=== PATIENT | female | born 1955 | race Caucasian/White ===

== ENCOUNTER 2017-02-06 17:55 | Emergency (ER) | payer BC ==
[2017-02-06 18:00] VITALS: TEMP 98.3; BMI 21.7
--- NOTE | 2017-02-06 19:25 | PDOC ---
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 She qualifies the pain as pressure-like, stating that there are bricks on her chest. She denies any alleviating or exacerbating factors and states that she takes aspirin daily. The patient reports not recently taking her cholesterol medications. She also reports that she is recently getting over a cold in which she was taking antibiotics for. The patient denies any fever, chills, nausea, vomiting, diarrhea, cough, shortness of breath, or urinary symptoms. Social Hx: The patient denies any drug, tobacco, or alcohol use. Family Hx: The patient reports a family history of heart disease. PCP: Dr. Pisano <Krystyna Tang - Last Filed: 02/06/17 22:31> <Florina Gallardo - Last Filed: 02/06/17 23:05> - General Chief Complaint: Shortness of Breath Stated Complaint: SHORTNESS OF BREATH Time Seen by Provider: 02/06/17 19:11 Past History <Krystyna Tang - Last Filed: 02/06/17 22:31> - Past Medical History Anemia: No Asthma: No Cancer: Yes (lung cancer) Cardiac Disorders: Yes (UT) CVA: No COPD: No CHF: No Dementia: No Diabetes: No GI Disorders: No Disorders: No HTN: Yes Hypercholesterolemia: Yes Liver Disease: No Seizures: No Thyroid Disease: No - Surgical History Abdominal Surgery: Yes Appendectomy: Yes Cardiac Surgery: No Cholecystectomy: No Lung Surgery: Yes (RIGHT UPPER LOBECTOMY, bx,thoracotomy) Neurologic Surgery: No Orthopedic Surgery: No - Immunization History Immunization Up to Date: Yes - Psycho/Social/Smoking Cessation Hx Anxiety: Yes Suicidal Ideation: No Smoking Status: Yes Smoking History: Former smoker Have you smoked in the past 12 months: No Number of Cigarettes Smoked Daily: 0 If you are a former smoker, when did you quit?: 2010 Information on smoking cessation initiated: No Hx Alcohol Use: No Drug/Substance Use Hx: No Substance Use Type: None Hx Substance Use Treatment: No <Florina Gallardo - Last Filed: 02/06/17 23:05> - Past Medical History Allergies/Adverse Reactions: Allergies Allergy/AdvReac Type Severity Reaction Status Date / Time No Known Allergies Allergy Verified 02/06/17 18:00 Home Medications: Ambulatory Orders Alprazolam 0.5 mg PO TID 02/06/17 Hydrocodone/Acetaminophen [[place] 5-325 Tablet] 1 each PO TID 02/06/17 Methimazole 5 mg PO DAILY 02/06/17 Propranolol HCl 20 mg PO DAILY 02/06/17 Zolpidem Tartrate 10 mg PO DAILY 02/06/17 Review of Systems - Review of Systems Able to Perform ROS?: Yes Comments:: 02/06/17 20:04 GENERAL/CONSTITUTIONAL: No fever or chills. No weakness. HEAD, EYES, EARS, NOSE AND THROAT: No change in vision. No ear pain or discharge. No sore throat. CARDIOVASCULAR: Present: chest pain No shortness of breath. RESPIRATORY: No cough, wheezing, or hemoptysis. GASTROINTESTINAL: No nausea, vomiting, diarrhea or constipation. GENITOURINARY: No dysuria, frequency, or change in urination. MUSCULOSKELETAL: No joint or muscle swelling or pain. No neck or back pain. SKIN: No rash NEUROLOGIC: No headache, vertigo, loss of consciousness, or change in strength/ sensation. ENDOCRINE: No increased thirst. No abnormal weight change. HEMATOLOGIC/LYMPHATIC: No anemia, easy bleeding, or history of blood clots. ALLERGIC/IMMUNOLOGIC: No hives or skin allergy. All Other Systems: Reviewed and Negative <Krystyna Tang - Last Filed: 02/06/17 22:31> *Physical Exam - Vital Signs Last Vital Signs Temp Pulse Resp BP Pulse Ox 98.3 F 92 H 18 107/65 98 02/06/17 17:57 02/06/17 17:57 02/06/17 17:57 02/06/17 17:57 02/06/17 17:57 - Physical Exam Comments: 02/06/17 20:05 GENERAL: Awake, alert, and fully oriented, in no acute distress HEAD: No signs of trauma EYES: PERRLA, EOMI, sclera anicteric, conjunctiva clear ENT: Auricles normal inspection, hearing grossly normal, nares patent, oropharynx clear without exudates. Moist mucosa NECK: Normal ROM, supple, no lymphadenopathy, JVD, or masses LUNGS: Breath sounds equal, clear to auscultation bilaterally. No wheezes, and no crackles HEART: Regular rate and rhythm, normal S1 and S2, no murmurs, rubs or gallops ABDOMEN: Soft, nontender, normoactive bowel sounds. No guarding, no rebound. No masses EXTREMITIES: Normal range of motion, no edema. No clubbing or cyanosis. No cords, erythema, or tenderness NEUROLOGICAL: Cranial nerves II through XII grossly intact. Normal speech, normal gait SKIN: Warm, Dry, normal turgor, no rashes or lesions noted. <Krystyna Tang - Last Filed: 02/06/17 22:31> - Vital Signs Last Vital Signs Temp Pulse Resp BP Pulse Ox 98.3 F 92 H 18 107/65 98 02/06/17 17:57 02/06/17 17:57 02/06/17 17:57 02/06/17 17:57 02/06/17 17:57 <Florina Gallardo - Last Filed: 02/06/17 23:05> Heart Score/ECG Review - ECG Intrepretation Comment:: 02/06/17 20:05 ECG obtained at 19:58 Normal sinus at 81 bpm. Left atrial enlargement that is the same pattern as old ECG on 10/06/16 <Krystyna Tang - Last Filed: 02/06/17 22:31> ED Treatment Course - LABORATORY CBC & Chemistry Diagram: 02/06/17 20:00 02/06/17 21:03 <KittyKrystyna - Last Filed: 02/06/17 22:31> - LABORATORY CBC & Chemistry Diagram: 02/06/17 20:00 02/06/17 21:03 <Florina Gallardo - Last Filed: 02/06/17 23:05> Medical Decision Making - Medical Decision Making 02/06/17 22:03 Phone call placed to patient's PCP, Dr. Pisano. Awaiting call back 02/06/17 22:31 Phone call returned by Dr. Turpin, covering for Dr. Pisano. Case was discussed. <Krystyna Tang - Last Filed: 02/06/17 22:31> - Medical Decision Making 02/06/17 21:59 Pt comes with feeling of tightness or weight on her chest. Not worse with exertion. Her EKG is the same pattern as old. Her vitals are normal. CBC normal. Chem and cardiac enzymes hemolyzed; 3 tubes resent; cardiac enzymes and lipase cancelled. 4 hrs later I am requesting another cardiac enzyme and lipase add on. 4 hrs later I am still awaiting a CXR. I will call Dr. Bustillo to see if he wants to admit the patient. Pt was teated with asa only. She is feeling okay at this time. She has no complaints. She states that she is always SOB after her lung lobectomies due to her history of lung cancer. TSH also pending. 02/06/17 23:[address] Greco, who is covering for Tristian; he agrees that pt can remain in the hospital for observation under hospitalist. Pt doesnt want to stay. She wants to go home, as she states that her pain began yesterday AM. SHe wants to follow with her PMD as an outpatient. <Florina Gallardo - Last Filed: 02/06/17 23:05> *DC/Admit/Observation/Transfer - Attestations Scribe Attestion: 02/06/17 20:07 Documentation prepared by Kyrstyna Tang, acting as medical practice assistant for Florina Gallardo MD. <Krystyna Tang - Last Filed: 02/06/17 22:31> - Discharge Dispostion Admit: No <Florina Gallardo - Last Filed: 02/06/17 23:05> Diagnosis at time of Disposition: GERD (gastroesophageal reflux disease), Atypical chest pain - Discharge Dispostion Disposition: HOME Condition at time of disposition: Stable - Referrals Referrals: Garfield Pisano MD [Primary Care Provider] - - Patient Instructions Printed Discharge Instructions: DI for Atypical Chest Pain, Gastroesophageal Reflux Disease (Alternative Therapy)
[2017-02-06] MEDS ORDERED: ASPIRIN 81 MG CHEWABLE TABLETS PO ONE (19:43)
[2017-02-06] MEDS ORDERED: ASPIRIN 81 MG CHEWABLE TABLETS ONE (19:54)
[2017-02-06 20:27] LABS: BASOPHIL 1.4 % (0-2.0); EOSINOPHIL 2.6 % (0-4.5); MEAN CELL VOLUME 94.2 fl (80-96); MEAN PLT VOLUME 9.1 fl (7.5-11.1); NEUTROPHILS 39.6 % (42.8-82.8); PLATELET COUNT 143 K/MM3 (134-434); RDW 14.1 % (11.6-15.6); WHITE BLOOD COUNT 5.8 K/mm3 (4.0-10.0)
[2017-02-06 21:50] LABS: ALBUMIN 3.7 g/dl (3.4-5.0); ALK PHOS 80 U/L (45-117); ANION GAP 10 (8-16); BILIRUBIN,TOTAL 0.3 mg/dL (0.2-1.0); CALCIUM 9.1 mg/dL (8.5-10.1); CO2 27 mmol/L (21-32); CREATININE 0.7 mg/dL (0.55-1.02); GLUCOSE,RANDOM 88 mg/dL (74-106); SGOT/AST 12 U/L (15-37); SGPT/ALT 16 U/L (12-78); TOT PROT 7.2 g/dl (6.4-8.2)
[2017-02-06 22:24] LABS: TROPONIN I < 0.02 ng/ml (0.00-0.05)
[2017-02-06] MEDS ORDERED: FAMOTIDINE 20 MG/50 ML IVPB 50 ML IVPB ONE (22:26)
[2017-02-06] MEDS ORDERED: MAG HYDROX/AL HYDROX/SIMETH 30 ML UNIT-DOSE CUP PO ONE (22:26)
[2017-02-06 23:18] VITALS: BP 110/69; PULSE 59
--- NOTE | 2017-02-07 14:18 | EKG ---
Test Reason : Blood Pressure : / mmHG Vent. Rate : 081 BPM Atrial Rate : 081 BPM P-R Int : 198 ms QRS Dur : 078 ms QT Int : 386 ms P-R-T Axes : 089 049 079 degrees QTc Int : 448 ms NORMAL SINUS RHYTHM POSSIBLE LEFT ATRIAL ENLARGEMENT LOW VOLTAGE QRS CANNOT RULE OUT ANTEROSEPTAL INFARCT (CITED ON OR BEFORE 16-MAR-2008) ABNORMAL ECG WHEN COMPARED WITH ECG OF 06-OCT-2016 05:53, NO SIGNIFICANT CHANGE WAS FOUND Confirmed by ASIA GO, AME ([id number]) on 02/07/2017 2:17:50 PM Referred By: Confirmed By:AME BETANCOURT MD
== END 2017-02-06 23:19 | disposition home or self-care (01) ==
LOC: JER 17:55
DX: R07.89 Other chest pain (principal); K21.9 Gastro-esophageal reflux disease without esophagitis; Z79.82 Long term (current) use of aspirin; I10 Essential (primary) hypertension; E78.5 Hyperlipidemia, unspecified; I25.10 Atherosclerotic heart disease of native coronary artery without angina pectoris; Z85.118 Personal history of other malignant neoplasm of bronchus and lung; E07.9 Disorder of thyroid, unspecified; I25.2 Old myocardial infarction; Z87.891 Personal history of nicotine dependence
CPT/HCPCS: 36415; 71020-TC; 80053; 82550; 83690; 84443; 84484; 85025; 93005; 93010; 99284-25

== ENCOUNTER 2017-03-11 12:13 | Emergency (ER) | payer BC ==
[2017-03-11 12:20] VITALS: TEMP 98.7; BMI 20.7
[2017-03-11] MEDS ORDERED: morphine CARPU-JECT 4 MG/1 ML DISP.SYRIN IVPUSH ONE (13:32)
[2017-03-11] MEDS ORDERED: morphine CARPU-JECT 4 MG/1 ML DISP.SYRIN ONE (13:45)
--- NOTE | 2017-03-11 13:48 | PDOC ---
History of Present Illness <Seema Freitas - Last Filed: 03/11/17 18:43> - General History Source: Patient Exam Limitations: No Limitations - History of Present Illness Initial Comments: 03/11/17 13:43 61y F hx of lung ca (s/p lobectomy on L and R, sp immunotherpay with complications), htn,hl, cad s/p mi, hypothyroidism presents with L rib pain. Pt states she has been having pain in that region for eight months, and is on oral meds and pain patch but has not beenhelpint. pt denies any cp, sob, fever/chills , diarrhea, dysuria, hematuria, consipation, headache, dizziness, vision changes. pt states when you push on a particualr location on the left flank the pain radiates to the L groin. PSH: appendectomy, thoracotomy, lobectomy SH: Former smoker PCP: Dr. Garfield Pisano Oncologist: Dr. Singh Key <Bebeto Mariano - Last Filed: 03/11/17 20:14> - General Chief Complaint: Pain Stated Complaint: PAIN Time Seen by Provider: 03/11/17 13:02 Past History <Seema Freitas - Last Filed: 03/11/17 18:43> - Past Medical History Anemia: No Asthma: No Cancer: Yes (lung cancer) Cardiac Disorders: Yes ([place]) CVA: No COPD: No CHF: No Dementia: No Diabetes: No GI Disorders: No Disorders: No HTN: Yes Hypercholesterolemia: Yes Liver Disease: No Seizures: No Thyroid Disease: No - Surgical History Abdominal Surgery: Yes Appendectomy: Yes Cardiac Surgery: No Cholecystectomy: No Lung Surgery: Yes (RIGHT UPPER LOBECTOMY, bx,thoracotomy) Neurologic Surgery: No Orthopedic Surgery: No - Immunization History Immunization Up to Date: Yes - Psycho/Social/Smoking Cessation Hx Anxiety: Yes Suicidal Ideation: No Smoking Status: Yes Smoking History: Former smoker Have you smoked in the past 12 months: No Number of Cigarettes Smoked Daily: 0 If you are a former smoker, when did you quit?: 2010 Information on smoking cessation initiated: No Hx Alcohol Use: No Drug/Substance Use Hx: No Substance Use Type: None Hx Substance Use Treatment: No <Bebeto Mariano - Last Filed: 05/18/17 20:14> - Past Medical History Allergies/Adverse Reactions: Allergies Allergy/AdvReac Type Severity Reaction Status Date / Time No Known Allergies Allergy Verified 03/11/17 12:17 Home Medications: Ambulatory Orders Alprazolam 0.5 mg PO TID 02/06/17 Hydrocodone/Acetaminophen [[place] 5-325 Tablet] 1 each PO BID 02/06/17 Methimazole 5 mg PO DAILY 02/06/17 Propranolol HCl 20 mg PO TID 02/06/17 Zolpidem Tartrate 10 mg PO DAILY 02/06/17 Oxycodone HCl/Acetaminophen [Perc[place]et 5-325 mg Tablet -] 1 combo PO Q6H PRN #14 tablet MDD 4 03/11/17 Review of Systems - Review of Systems Able to Perform ROS?: Yes Comments:: 03/11/17 13:47 Constitutional - no reported Fever, Chills, HEENT: no reported vision changes, sore throat Respiratory: no reported cough, sob, hemoptysis Cardiac: no reported chest pain, palpitations, light headedness, leg swelling Abd/GI: + abd pain, flank pain no reported nausea, vomiting, blood per rectum, melena, diarrhea : no reported dysuria, frequency, discharge Musculskelatal - no reported back pain, joint swelling skin - no reported bruising, erythema, rash neurological: no reported headache, numbness, focal weakness, tingling, ataxia, hematologic: no reported anemia, easy bruising, easy bleeding <Beebto Mariano - Last Filed: 03/11/17 20:14> *Physical Exam - Vital Signs Last Vital Signs Temp Pulse Resp BP Pulse Ox 98.7 F 111 H 24 134/82 99 03/11/17 12:17 03/11/17 12:17 03/11/17 12:17 03/11/17 12:17 03/11/17 12:17 <Seema Freitas - Last Filed: 03/11/17 18:43> - Vital Signs Last Vital Signs Temp Pulse Resp BP Pulse Ox 98.7 F 111 H 24 134/82 99 03/11/17 12:17 03/11/17 12:17 03/11/17 12:17 03/11/17 12:17 03/11/17 12:17 - Physical Exam Comments: 03/11/17 13:48 GENERAL: The patient is awake, alert, and fully oriented, Nontoxic - in no acute distress. Cachectic HEAD: Normocephalic, atraumatic. EYES: extraocular movements intact, sclera anicteric, conjunctiva clear. ENT: Normal voice, Moist mucous membranes. NECK: Normal range of motion, supple LUNGS: Breath sounds equal, clear to auscultation bilaterally. No wheezes, no rhonchi, no rales. HEART: port in R chest that is c/d/i Regular rate and rhythm, normal S1 and S2 without murmur, rub or gallop. ABDOMEN: Soft, nontender, normoactive bowel sounds. No guarding, no rebound. . No CVA tenderness EXTREMITIES: Normal range of motion, no edema. No clubbing or cyanosis. No cords, erythema, or tenderness. NEUROLOGICAL: No facial assymetry, Normal speech, PSYCH: Normal mood, normal affect. SKIN: Warm, Dry, normal turgor, BACK: s/p thoracotomy scars in back b/l, no midline focal tenderness, mild tendernes sin the L flank, no rashes or lesions <García,Bebeto - Last Filed: 03/11/17 20:14> ED Treatment Course - LABORATORY CBC & Chemistry Diagram: 03/11/17 13:32 03/11/17 13:32 - ADDITIONAL ORDERS Additional order review: Laboratory Results 03/11/17 03/11/17 14:45 13:32 Sodium 143 Potassium 3.8 Chloride 104 Carbon Dioxide 26 Anion Gap 13 BUN 7 D Creatinine 0.7 Creat Clearance w eGFR > 60 Random Glucose 87 Calcium 9.3 Total Bilirubin 0.4 D AST 12 L ALT 16 Alkaline Phosphatase 72 Total Protein 7.3 Albumin 4.1 Urine Color Straw Urine Appearance Clear Urine pH 5.0 Urine Protein Negative Urine Glucose (UA) Negative Urine Ketones Negative Urine Blood 2+ H Urine Nitrite Negative Urine Bilirubin Negative Urine Urobilinogen Negative Ur Leukocyte Esterase Negative 03/11/17 13:32 RBC 4.07 MCV 92.3 MCHC 34.5 RDW 13.6 MPV 7.1 L D Neutrophils % 53.6 D Lymphocytes % 36.1 D Monocytes % 7.5 Eosinophils % 1.5 Basophils % 1.3 - Medications Given in the ED: ED Medications Discontinued Medications Generic Name Dose Route Start Last Admin Trade Name Freq PRN Reason Stop Dose Admin Sodium Chloride 500 mls @ 500 mls/hr 03/11/17 13:49 03/11/17 14:15 Normal Saline - IV 03/11/17 14:48 500 mls/hr ASDIR STA Administration Ketorolac Tromethamine 30 mg 03/11/17 17:14 03/11/17 17:30 Toradol Injection - IVPUSH 03/11/17 17:15 30 mg ONCE ONE Administration Morphine Sulfate 4 mg 03/11/17 13:32 03/11/17 13:48 Morphine Injection - IVPUSH 03/11/17 13:33 4 mg ONCE ONE Administration <Seema Freitas - Last Filed: 03/11/17 18:43> - LABORATORY CBC & Chemistry Diagram: 03/11/17 13:32 03/11/17 13:32 <Bebeto Mariano - Last Filed: 03/11/17 20:14> Medical Decision Making - Medical Decision Making 03/11/17 18:42 First call placed to Dr. Pisano at 18:42. Awaiting call back from Dr. Christianson. <Seema Freitas - Last Filed: 03/11/17 18:43> - Medical Decision Making 03/11/17 13:49 03/11/17 17:14 labs w/ 2+ hematuria ?kidney stone will await CT abdomen/pelvis 03/11/17 18:32 ct + nephrolithiasis w/o signs of hydronephrosis do not think the stone is likely the cause of her pain ?post op pain vs msk will discuss with pam 03/11/17 19:53 03/11/17 20:[address] christianson agree with management, pt has chronic pain, unclear cause, was hospitalized for same in the past if pain controlled, can d/c with pmd fu will also have pt fu with urology for kidney stone return precautiosn were discussed I discussed the physical exam findings, ancillary test results and final diagnoses with the patient. I answered all of the patient's questions. The patient was satisfied with the care received and felt comfortable with the discharge plan and treatment plan. The patient will call their primary care physician within 24 hours to arrange follow-up and will return to the Emergency Department with any new, persistent or worsening symptoms. <García,Bebeto - Last Filed: 03/11/17 20:14> *DC/Admit/Observation/Transfer - Attestations Scribe Attestion: 03/11/17 18:43 Documentation prepared by Seema Freitas, acting as medical billing coder for Bebeto Mariano MD. <Seema Freitas - Last Filed: 03/11/17 18:43> - Discharge Dispostion Admit: No <Bebeto Mariano - Last Filed: 03/11/17 20:14> Diagnosis at time of Disposition: Flank pain, Kidney stone on left side Chronic pain Qualifiers: Chronic pain type: other chronic pain Qualified Code(s): G89.29 - Other chronic pain - Discharge Dispostion Disposition: HOME Condition at time of disposition: Improved - Referrals Referrals: Garfield Pisano MD [Primary Care Provider] - Slick Moralez MD [Staff Physician] - - Patient Instructions Printed Discharge Instructions: DI for Kidney Stones Additional Instructions: Return to the emergency department immediately with ANY new, persistent or worsening symptoms including any fevers, chills, worsening pain, nausea, vomiting, severe back pain or any other concerns. You MUST call and follow up with your doctor and urologist within 3-4 days for further evaluation of your symptoms. Results were discussed with you. Please make sure your doctor reviews the results of your emergency evaluation. Print Language: INDIAN
[2017-03-11] MEDS ORDERED: SODIUM CHLORIDE 500 ML IV STA (13:49)
[2017-03-11 14:10] LABS: MCH 31.9 pg (25.7-33.7); MCHC 34.5 g/dl (32.0-36.0); MEAN CELL VOLUME 92.3 fl (80-96); PLATELET COUNT 204 K/MM3 (134-434); RDW 13.6 % (11.6-15.6); WHITE BLOOD COUNT 5.3 K/mm3 (4.0-10.0)
[2017-03-11 14:11] LABS: BASOPHIL 1.3 % (0-2.0); EOSINOPHIL 1.5 % (0-4.5); MEAN PLT VOLUME 7.1 fl (7.5-11.1); NEUTROPHILS 53.6 % (42.8-82.8)
[2017-03-11 14:20] LABS: ALBUMIN 4.1 g/dl (3.4-5.0); ALK PHOS 72 U/L (45-117); ANION GAP 13 (8-16); BILIRUBIN,TOTAL 0.4 mg/dL (0.2-1.0); CALCIUM 9.3 mg/dL (8.5-10.1); CO2 26 mmol/L (21-32); CREATININE 0.7 mg/dL (0.55-1.02); GLUCOSE,RANDOM 87 mg/dL (74-106); SGOT/AST 12 U/L (15-37); SGPT/ALT 16 U/L (12-78); TOT PROT 7.3 g/dl (6.4-8.2)
[2017-03-11 15:17] LABS: URINE APPEARANCE CLEAR; URINE BILIRUBIN NEGATIVE (NEGATIVE); URINE COLOR STRAW; URINE GLUCOSE (UA) NEGATIVE (NEGATIVE); URINE KETONE NEGATIVE (NEGATIVE); URINE LEUK ESTERASE NEGATIVE (NEGATIVE); URINE NITRITE NEGATIVE (NEGATIVE); URINE PROTEIN NEGATIVE (NEGATIVE); URINE UROBILINOGEN NEGATIVE E.U./dl (0.2-1.0)
[2017-03-11 15:53] LABS: URINE BLOOD 2+ (NEGATIVE)
[2017-03-11 16:07] LABS: URINE BACTERIA RARE /hpf (NONE SEEN); URINE MUCUS RARE; URINE RBC 1 /hpf (0-3)
[2017-03-11] MEDS ORDERED: KETOROLAC TROMETHAMINE 30 MG/1 ML VIAL IVPUSH ONE (17:14)
[2017-03-11] MEDS ORDERED: KETOROLAC TROMETHAMINE 30 MG/1 ML VIAL ONE (17:26)
[2017-03-11] MEDS ORDERED: morphine CARPU-JECT 2 MG/1 ML DISP.SYRIN IVPUSH ONE (18:33)
[2017-03-11] MEDS ORDERED: morphine CARPU-JECT 2 MG/1 ML DISP.SYRIN ONE (18:40)
[2017-03-11 20:00] VITALS: BP 115/74; PULSE 75
== END 2017-03-11 20:18 | disposition home or self-care (01) ==
LOC: JER 12:13
PROC: 3E0333Z Introduction of Anti-inflammatory into Peripheral Vein, Percutaneous Approach (ICD-10-PCS; principal; 2017-03-11)
PROC: 3E033NZ Introduction of Analgesics, Hypnotics, Sedatives into Peripheral Vein, Percutaneous Approach (ICD-10-PCS; 2017-03-11)
PROC: 3E0337Z Introduction of Electrolytic and Water Balance Substance into Peripheral Vein, Percutaneous Approach (ICD-10-PCS; 2017-03-11)
DX: N23 Unspecified renal colic (principal); R10.32 Left lower quadrant pain; G89.29 Other chronic pain; Z85.118 Personal history of other malignant neoplasm of bronchus and lung; Z85.3 Personal history of malignant neoplasm of breast
CPT/HCPCS: 36415; 74176; 80053; 81003; 81015; 85025; 99284-25

== ENCOUNTER 2017-03-15 12:08 | Emergency (ER) | payer BC ==
[2017-03-15 12:30] VITALS: BMI 21.7
[2017-03-15] MEDS ORDERED: HYDROmorphone HCL CARPU-JECT 1 MG/1 ML DISP.SYRIN IVPB ONE (12:47)
[2017-03-15] MEDS ORDERED: HYDROmorphone HCL CARPU-JECT 1 MG/1 ML DISP.SYRIN ONE (12:58)
--- NOTE | 2017-03-15 13:12 | PDOC ---
"History of Present Illness - General History Source: Patient, Old Records Exam Limitations: No Limitations - History of Present Illness Initial Comments: 03/15/17 13:18 The patient is a 61 year old female, with a significant past medical history of lung ca (s/p lobectomy on L and R, sp immunotherpay with complications), HTN, HLD, CAD s/p AR, and hypothyroidism, who presents to the emergency department with abdominal pain, nausea and constipation. She describes her abdominal pain as localized on the left lower quadrant, moderate in severity, with radiation to the left flank. She notes that certain movements exacerbates her pain. The patient was in the ED on 03/11/2017 for the same symptoms, diagnosed wih kidney stones and discharged after improvements of symptoms. She was referred to follow up with her PMD and urologist in 3-4 days. The patient denies chest pain, shortness of breath, headache and dizziness. Denies fever, chills, vomit, and diarrhea. Denies dysuria, frequency, urgency and hematuria. Allergies: None Past surgical history: lobectomy, appendectomy, thoracotomy Social history: No alcohol, tobacco or drug use reported PMD - Dr. Pisano Oncologist: Dr. Singh Key <Dejon Agrawal - Last Filed: 03/15/17 14:33> - General History Source: Patient, Old Records Exam Limitations: No Limitations <Julius Sutton - Last Filed: 04/02/17 08:08> - General Chief Complaint: Pain Stated Complaint: ABD PAIN Time Seen by Provider: 03/15/17 12:43 Past History <Dejon Agrawal - Last Filed: 03/15/17 14:33> - Past Medical History Anemia: No Asthma: No Cancer: Yes (lung cancer) Cardiac Disorders: Yes ([place]) CVA: No COPD: No CHF: No Dementia: No Diabetes: No GI Disorders: No Disorders: No HTN: Yes Hypercholesterolemia: Yes Liver Disease: No Seizures: No Thyroid Disease: No - Surgical History Abdominal Surgery: Yes Appendectomy: Yes Cardiac Surgery: No Cholecystectomy: No Lung Surgery: Yes (RIGHT UPPER LOBECTOMY, bx,thoracotomy) Neurologic Surgery: No Orthopedic Surgery: No - Immunization History Immunization Up to Date: Yes - Psycho/Social/Smoking Cessation Hx Anxiety: Yes Suicidal Ideation: No Smoking Status: Yes Smoking History: Former smoker Have you smoked in the past 12 months: No Number of Cigarettes Smoked Daily: 0 If you are a former smoker, when did you quit?: 2010 Information on smoking cessation initiated: No Hx Alcohol Use: No Drug/Substance Use Hx: No Substance Use Type: None Hx Substance Use Treatment: No <LesleyJulius - Last Filed: 04/02/17 08:08> - Past Medical History Allergies/Adverse Reactions: Allergies Allergy/AdvReac Type Severity Reaction Status Date / Time No Known Allergies Allergy Verified 03/15/17 12:27 Home Medications: Ambulatory Orders Alprazolam 0.5 mg PO TID 02/06/17 Hydrocodone/Acetaminophen [[place] 5-325 Tablet] 1 each PO BID 02/06/17 Methimazole 5 mg PO DAILY 02/06/17 Propranolol HCl 20 mg PO TID 02/06/17 Zolpidem Tartrate 10 mg PO DAILY 02/06/17 Oxycodone HCl/Acetaminophen [Percocet 5-325 mg Tablet -] 1 combo PO Q6H PRN #14 tablet MDD 4 03/11/17 Aspirin [Children's Aspirin] 81 mg PO DAILY 03/15/17 Ondansetron [Zofran -] 4 mg PO TID PRN #20 tablet 03/15/17 Oxycodone HCl/Acetaminophen [Percocet 5-325 mg Tablet] 1 tab PO Q6H PRN #10 tablet MDD 4 03/15/17 Review of Systems - Review of Systems Able to Perform ROS?: Yes Comments:: 03/15/17 13:18 GENERAL/CONSTITUTIONAL: No fever or chills. No weakness. HEAD, EYES, EARS, NOSE AND THROAT: No change in vision. No ear pain or discharge. No sore throat. CARDIOVASCULAR: No chest pain or shortness of breath RESPIRATORY: No cough, wheezing, or hemoptysis. GASTROINTESTINAL: (+) Abdominal pain, nausea and constipation. No vomiting, diarrhea. GENITOURINARY: No dysuria, frequency, or change in urination. MUSCULOSKELETAL: No joint or muscle swelling or pain. No neck or back pain. SKIN: No rash NEUROLOGIC: No headache, vertigo, loss of consciousness, or change in strength/ sensation. ENDOCRINE: No increased thirst. No abnormal weight change HEMATOLOGIC/LYMPHATIC: No anemia, easy bleeding, or history of blood clots. ALLERGIC/IMMUNOLOGIC: No hives or skin allergy. <Dejon Agrawal - Last Filed: 03/15/17 14:33> *Physical Exam - Vital Signs Last Vital Signs Temp Pulse Resp BP Pulse Ox 98 F 65 20 125/80 100 03/15/17 12:27 03/15/17 12:27 03/15/17 12:27 03/15/17 12:27 03/15/17 12:27 - Physical Exam Comments: 03/15/17 13:20 GENERAL: (+) Uncomfortable appearingAwake, alert, and fully oriented, in no acute distress HEAD: No signs of trauma, normocephalic, atraumatic EYES: PERRLA, EOMI, sclera anicteric, conjunctiva clear ENT: Auricles normal inspection, hearing grossly normal, nares patent, oropharynx clear without exudates. Moist mucosa NECK: Normal ROM, supple, no lymphadenopathy, JVD, or masses LUNGS: No distress, speaks full sentences, clear to auscultation bilaterally HEART: Regular rate and rhythm, normal S1 and S2, no murmurs, rubs or gallops, peripheral pulses normal and equal bilaterally. ABDOMEN: (+) Left upper quadrant tenderness to palpation, left flank pain. Soft , normoactive bowel sounds. No guarding, no rebound. No masses EXTREMITIES: Normal inspection, Normal range of motion, no edema. No clubbing or cyanosis. NEUROLOGICAL: Cranial nerves II through XII grossly intact. Normal speech, normal gait, no focal sensorimotor deficits SKIN: Warm, Dry, normal turgor, no rashes or lesions noted. <Dejon Agrawal - Last Filed: 03/15/17 14:33> - Vital Signs Last Vital Signs Temp Pulse Resp BP Pulse Ox 98 F 65 20 125/80 100 03/15/17 12:27 03/15/17 12:27 03/15/17 12:27 03/15/17 12:27 03/15/17 12:27 <Julius Sutton - Last Filed: 04/02/17 08:08> ED Treatment Course - LABORATORY CBC & Chemistry Diagram: 03/15/17 13:20 03/15/17 13:20 <Dejon Agrawal - Last Filed: 03/15/17 14:33> - LABORATORY CBC & Chemistry Diagram: 03/15/17 13:20 03/15/17 13:20 <Julius Sutton - Last Filed: 04/02/17 08:08> Medical Decision Making - Medical Decision Making 03/15/17 14:33 Dr. Garfield Pisano was called regarding the patient at 1:10pm and again at 1: 40pm Dr. Pisano was consulted regarding the patient at 2:09pm [phone] <Dejon Agrawal - Last Filed: 03/15/17 14:33> - Medical Decision Making 03/15/17 13:11 A portion of this note was documented by scribe services under my direction. I have reviewed the details of the note, within reason, and agree with the documentation with the following case summary and management plan written by me. Patient treated in the ED. Nursing notes are reviewed and incorporated into the medical decision-making. Vital signs reviewed. Peripheral IV access obtained by the nurse, laboratory studies are drawn and sent, reviewed and interpreted by myself. 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 Patient was seen on March 11 for this specific type of pain which describes is persistent and twisting and pressure. She had workup that demonstrated a kidney stone on the CAT scan. She had workup performed which does show no acute findings. She was discharged with pain medications. However, patient's been taking Percocet at home with no improvement of symptoms. States that the pain is persistent and is unable to control. She was seen at Dr. Pruett's (GI) office. The patient was sent to the ED given worsening patient had. Could this be potentially neuropathic pain? Could this also be secondary to her kidney stone? This could also be acute on chronic pain. We'll give a dose of dilaudid and contact her primary care physician in regards to disposition. 03/15/17 14:02 This report was requested by: Julius Sutton | Reference #: [id number] Others' Prescriptions Patient Name: Tonia Carbone Date: 1955 Address: [address] [place] [address] Sex: Female Rx Written Rx Dispensed Drug Quantity Days Supply Prescriber Name 12/30/2016 03/06/2017 zolpidem tartrate 10 mg tablet 30 30 Garfield Pisano MD 02/04/2017 02/09/2017 hydrocodone-acetaminophen 5-325 mg tablet 60 30 TristianGarfield borjas MD 02/04/2017 02/05/2017 alprazolam 0.5 mg tablet 90 30 TristianGarfield borjas MD 12/30/2016 02/02/2017 zolpidem tartrate 10 mg tablet 30 30 TristianGarfield borjas MD 12/30/2016 01/10/2017 hydrocodone-acetaminophen 5-325 mg tablet 60 30 TristianGarfield borjas MD 12/30/2016 01/06/2017 alprazolam 0.5 mg tablet 90 30 TristianGarfield borjas MD 12/30/2016 01/03/2017 zolpidem tartrate 10 mg tablet 30 30 TristianGarfield borjas MD 12/08/2016 12/11/2016 hydrocodone-acetaminophen 5-325 mg tablet 60 30 TristianGarfield velázquez MD 12/07/2016 12/07/2016 alprazolam 0.5 mg tablet 90 30 Garfield Pisano MD 09/29/2016 12/04/2016 zolpidem tartrate 10 mg tablet 30 30 TristianGarfield borjas MD 11/10/2016 11/11/2016 hydrocodone-acetaminophen 5-325 mg tablet 60 30 TristianGarfield borjas MD 09/29/2016 11/02/2016 zolpidem tartrate 10 mg tablet 30 30 TristianGarfield borjas MD 10/28/2016 10/29/2016 alprazolam 0.5 mg tablet 90 30 TristianGarfield borjas MD 10/07/2016 10/07/2016 hydrocodone-acetaminophen 5-325 mg tablet 60 30 TristianGarfield borjas MD 09/29/2016 09/29/2016 zolpidem tartrate 10 mg tablet 30 30 Garfield Pisano MD 09/15/2016 09/24/2016 alprazolam 0.5 mg tablet 90 30 Garfield Pisano MD 09/02/2016 09/08/2016 nucynta 75 mg tablet 90 15 Garfield Pisano MD 09/08/2016 09/08/2016 zolpidem tartrate 10 mg tablet 20 20 Tyson Turpin MD 08/17/2016 08/26/2016 alprazolam 0.5 mg tablet 60 30 Garfield Pisano MD 08/20/2016 08/21/2016 virtussin ac liquid 120ml 8 Garfield Pisano MD 07/20/2016 07/27/2016 alprazolam 0.5 mg tablet 60 30 Garfield Pisano MD 06/22/2016 06/28/2016 alprazolam 0.5 mg tablet 60 30 Garfield Pisano MD 05/27/2016 05/28/2016 alprazolam 0.5 mg tablet 60 30 Garfield Pisano MD 04/09/2016 04/23/2016 alprazolam 0.5 mg tablet 60 30 Garfield Pisano MD 03/17/2016 03/23/2016 alprazolam 0.5 mg tablet 60 30 Garfield Pisano MD Patient did not want the dilaudid.. She preferred the morphine. The patient reported that this is her chronic pain. She states that this potentially neuropathic. The patient reports and has been honest with me that she has been on hydrocodone with acetaminophen has not been working. When she was last year couple days ago, the patient was given a prescription for Percocet but the pharmacy refused. This was confirmed on her [employer] registry. I suspect the patient is truly having acute on chronic pain and is not seeking drugs at this time. I have paged Dr. Pisano and awaiting response. However, patient's pain is improved with morphine. I have spoken with the pharmacist at [facility] and informed him that I'll be writing short two-day course of Percocet. I had informed him that I did review the pain. Registry. The patient has an appointment with a pain specialist in 2 days. Patient is comfortable with the plan and is prepared for discharge. I discussed the physical exam findings, ancillary test results and final diagnoses with the patient. I answered all of the patient's questions. The patient was satisfied with the care received and felt comfortable with the discharge plan and treatment plan. The patient will call their primary care physician within 24 hours to arrange follow-up and will return to the Emergency Department with any new, persistant or worsening symptoms. <Julius Sutton - Last Filed: 04/02/17 08:08> *DC/Admit/Observation/Transfer - Attestations Scribe Attestion: 03/15/17 13:20 Documentation prepared by Dejon Agrawal, acting as nuclear medicine medical director for Julius Sutton MD <Dejon Agrawal - Last Filed: 03/15/17 14:33> - Discharge Dispostion Admit: No <Julius Sutton - Last Filed: 04/02/17 08:08> Diagnosis at time of Disposition: Chronic pain Qualifiers: Chronic pain type: other chronic pain Qualified Code(s): G89.29 - Other chronic pain - Discharge Dispostion Disposition: HOME Condition at time of disposition: Improved - Prescriptions Prescriptions: Oxycodone HCl/Acetaminophen [Percocet 5-325 mg Tablet] 1 tab PO Q6H PRN #10 tablet MDD 4 PRN Reason: Pain Level 6-10 Ondansetron [Zofran -] 4 mg PO TID PRN #20 tablet PRN Reason: Nausea - Referrals Referrals: Garfield Pisano MD [Primary Care Provider] - - Patient Instructions Printed Discharge Instructions: DI for Chronic Pain -- Adult Additional Instructions: Please take 1 tablet of percocet every 6 hours as needed for pain. Please follow up with your pain doctor as scheduled."
[2017-03-15] MEDS ORDERED: morphine CARPU-JECT 4 MG/1 ML DISP.SYRIN IVPUSH ONE (13:22)
[2017-03-15] MEDS ORDERED: ONDANSETRON 4 MG/2 ML VIAL IVPB ONE (13:22)
[2017-03-15] MEDS ORDERED: ONDANSETRON 4 MG/2 ML VIAL ONE (13:22)
[2017-03-15] MEDS ORDERED: morphine CARPU-JECT 4 MG/1 ML DISP.SYRIN ONE (13:22)
[2017-03-15 13:31] LABS: BASOPHIL 0.9 % (0-2.0); EOSINOPHIL 1.3 % (0-4.5); MCH 32.5 pg (25.7-33.7); MCHC 35.2 g/dl (32.0-36.0); MEAN CELL VOLUME 92.3 fl (80-96); MEAN PLT VOLUME 7.3 fl (7.5-11.1); NEUTROPHILS 55.9 % (42.8-82.8); PLATELET COUNT 196 K/MM3 (134-434); RDW 13.4 % (11.6-15.6); WHITE BLOOD COUNT 5.4 K/mm3 (4.0-10.0)
[2017-03-15 13:57] LABS: ALBUMIN 4.1 g/dl (3.4-5.0); ANION GAP 13 (8-16); BILIRUBIN,TOTAL 0.4 mg/dL (0.2-1.0); CALCIUM 9.4 mg/dL (8.5-10.1); CO2 24 mmol/L (21-32); CREATININE 0.8 mg/dL (0.55-1.02); GLUCOSE,RANDOM 101 mg/dL (74-106); SGOT/AST 12 U/L (15-37); SGPT/ALT 15 U/L (12-78); TOT PROT 7.4 g/dl (6.4-8.2)
[2017-03-15 13:58] LABS: ALK PHOS 73 U/L (45-117)
[2017-03-15 14:25] VITALS: BP 107/72; PULSE 87; TEMP 98
== END 2017-03-15 14:25 | disposition home or self-care (01) ==
LOC: JER 12:08
PROC: 3E033NZ Introduction of Analgesics, Hypnotics, Sedatives into Peripheral Vein, Percutaneous Approach (ICD-10-PCS; principal; 2017-03-15)
PROC: 3E033GC Introduction of Other Therapeutic Substance into Peripheral Vein, Percutaneous Approach (ICD-10-PCS; 2017-03-15)
DX: G89.29 Other chronic pain (principal); I25.2 Old myocardial infarction; I10 Essential (primary) hypertension; E78.00 Pure hypercholesterolemia, unspecified; E03.9 Hypothyroidism, unspecified; Z85.118 Personal history of other malignant neoplasm of bronchus and lung
CPT/HCPCS: 36415; 80053; 85025; 99282-25

== ENCOUNTER 2017-04-08 10:54 | Emergency (ER) | payer BC ==
[2017-04-08 11:11] VITALS: TEMP 98.3; BMI 20.7
--- NOTE | 2017-04-08 11:23 | PDOC ---
History of Present Illness - General Chief Complaint: Back Pain Stated Complaint: BACK PAIN Time Seen by Provider: 04/08/17 11:23 Past History - Past Medical History Allergies/Adverse Reactions: Allergies Allergy/AdvReac Type Severity Reaction Status Date / Time No Known Allergies Allergy Verified 04/08/17 11:11 Home Medications: Ambulatory Orders Alprazolam 0.5 mg PO TID 02/06/17 Hydrocodone/Acetaminophen [[place] 5-325 Tablet] 1 each PO BID 02/06/17 Methimazole 5 mg PO DAILY 02/06/17 Propranolol HCl 20 mg PO TID 02/06/17 Zolpidem Tartrate 10 mg PO DAILY 02/06/17 Oxycodone HCl/Acetaminophen [Percocet 5-325 mg Tablet -] 1 combo PO Q6H PRN #14 tablet [facility] 4 03/11/17 Aspirin [Children's Aspirin] 81 mg PO DAILY 03/15/17 Ondansetron [Zofran -] 4 mg PO TID PRN #20 tablet 03/15/17 Oxycodone HCl/Acetaminophen [Percocet 5-325 mg Tablet] 1 tab PO Q6H PRN #10 tablet MDD 4 03/15/17 Anemia: No Asthma: No Cancer: Yes (lung cancer) Cardiac Disorders: Yes ([place]) CVA: No COPD: No CHF: No Dementia: No Diabetes: No GI Disorders: No Disorders: No HTN: Yes Hypercholesterolemia: Yes Liver Disease: No Seizures: No Thyroid Disease: Yes (hyperthyroid) - Surgical History Abdominal Surgery: Yes Appendectomy: Yes Cardiac Surgery: No Cholecystectomy: No Lung Surgery: Yes (RIGHT UPPER LOBECTOMY, bx,thoracotomy) Neurologic Surgery: No Orthopedic Surgery: No - Immunization History Immunization Up to Date: Yes - Psycho/Social/Smoking Cessation Hx Anxiety: Yes Suicidal Ideation: No Smoking Status: Yes Smoking History: Former smoker Have you smoked in the past 12 months: No Number of Cigarettes Smoked Daily: 0 If you are a former smoker, when did you quit?: 2010 Information on smoking cessation initiated: No Hx Alcohol Use: No Drug/Substance Use Hx: No Substance Use Type: None Hx Substance Use Treatment: No *Physical Exam - Vital Signs Last Vital Signs Temp Pulse Resp BP Pulse Ox 98.3 F 93 H 18 136/69 99 04/08/17 11:08 04/08/17 11:08 04/08/17 11:08 04/08/17 11:08 04/08/17 11:08
[2017-04-08] MEDS ORDERED: SODIUM CHLORIDE 1,000 ML IV STA (11:50)
[2017-04-08] MEDS ORDERED: morphine CARPU-JECT 2 MG/1 ML DISP.SYRIN IVPUSH ONE ×2 (11:51→13:32)
--- NOTE | 2017-04-08 12:00 | PDOC ---
History of Present Illness - General Chief Complaint: Back Pain Stated Complaint: BACK PAIN Time Seen by Provider: 04/08/17 11:23 Past History - Past Medical History Allergies/Adverse Reactions: Allergies Allergy/AdvReac Type Severity Reaction Status Date / Time No Known Allergies Allergy Verified 04/08/17 11:11 Home Medications: Ambulatory Orders Alprazolam 0.5 mg PO TID 02/06/17 Hydrocodone/Acetaminophen [[place] 5-325 Tablet] 1 each PO BID 02/06/17 Methimazole 5 mg PO DAILY 02/06/17 Propranolol HCl 20 mg PO TID 02/06/17 Zolpidem Tartrate 10 mg PO DAILY 02/06/17 Oxycodone HCl/Acetaminophen [Percocet 5-325 mg Tablet -] 1 combo PO Q6H PRN #14 tablet [facility] 4 03/11/17 Aspirin [Children's Aspirin] 81 mg PO DAILY 03/15/17 Ondansetron [Zofran -] 4 mg PO TID PRN #20 tablet 03/15/17 Oxycodone HCl/Acetaminophen [Percocet 5-325 mg Tablet] 1 tab PO Q6H PRN #10 tablet MDD 4 03/15/17 Anemia: No Asthma: No Cancer: Yes (lung cancer) Cardiac Disorders: Yes ([place]) CVA: No COPD: No CHF: No Dementia: No Diabetes: No GI Disorders: No Disorders: No HTN: Yes Hypercholesterolemia: Yes Liver Disease: No Seizures: No Thyroid Disease: Yes (hyperthyroid) - Surgical History Abdominal Surgery: Yes Appendectomy: Yes Cardiac Surgery: No Cholecystectomy: No Lung Surgery: Yes (RIGHT UPPER LOBECTOMY, bx,thoracotomy) Neurologic Surgery: No Orthopedic Surgery: No - Immunization History Immunization Up to Date: Yes - Psycho/Social/Smoking Cessation Hx Anxiety: Yes Suicidal Ideation: No Smoking Status: Yes Smoking History: Former smoker Have you smoked in the past 12 months: No Number of Cigarettes Smoked Daily: 0 If you are a former smoker, when did you quit?: 2010 Information on smoking cessation initiated: No Hx Alcohol Use: No Drug/Substance Use Hx: No Substance Use Type: None Hx Substance Use Treatment: No *Physical Exam - Vital Signs Last Vital Signs Temp Pulse Resp BP Pulse Ox 98.3 F 93 H 18 136/69 99 04/08/17 11:08 04/08/17 11:08 04/08/17 11:08 04/08/17 11:08 04/08/17 11:08
[2017-04-08] MEDS ORDERED: ONDANSETRON 4 MG/2 ML VIAL IVPUSH ONE (12:11)
[2017-04-08] MEDS ORDERED: morphine CARPU-JECT 2 MG/1 ML DISP.SYRIN ONE (12:16)
--- NOTE | 2017-04-08 12:22 | PDOC ---
History of Present Illness - General Chief Complaint: Back Pain Stated Complaint: BACK PAIN Time Seen by Provider: 04/08/17 11:23 History Source: Patient Exam Limitations: No Limitations - History of Present Illness Travel History: No Initial Comments: 04/08/17 12:16 61-year-old female presents to the ED with complaints of left back pain that radiates to her left flank and left lower quadrant. Patient states is on oxycodone every 6 hours which he states is not alleviate her discomfort. Patient states history of kidney stones without of obstruction and has had recurrent visits to the ER secondary to pain. Patient denies hematuria, fever, chills, nausea, chest pain, shortness of breath, abdominal distention or diarrhea. Patient states has been seen by Dr. Roper and her PCP Dr. Pisano with negative findings. Patient does have history of lung cancer and had a nuclear med test done 6 months prior with negative findings. Timing/Duration: reports: constant, getting worse Quality: reports: moderate, sharpness, stabbing Abdominal Pain Onset Location: reports: flank Pain Radiation: reports: LLQ Activities at Onset: reports: none Aggravating Factors: improves with: None Alleviating Factors: improves with: None Past History - Past Medical History Allergies/Adverse Reactions: Allergies Allergy/AdvReac Type Severity Reaction Status Date / Time No Known Allergies Allergy Verified 04/08/17 11:11 Home Medications: Ambulatory Orders Alprazolam 0.5 mg PO TID 02/06/17 Hydrocodone/Acetaminophen [[place] 5-325 Tablet] 1 each PO BID 02/06/17 Methimazole 5 mg PO DAILY 02/06/17 Zolpidem Tartrate 10 mg PO DAILY 02/06/17 Oxycodone HCl/Acetaminophen [Percocet 5-325 mg Tablet -] 1 combo PO Q6H PRN #14 tablet [facility]D 4 03/11/17 Aspirin [Children's Aspirin] 81 mg PO DAILY 03/15/17 Ondansetron [Zofran -] 4 mg PO TID PRN #20 tablet 03/15/17 Oxycodone HCl/Acetaminophen [Percocet 5-325 mg Tablet] 1 tab PO Q6H PRN #10 tablet MDD 4 03/15/17 Propranolol HCl [Inderal] 20 mg PO DAILY 04/08/17 Anemia: No Asthma: No Cancer: Yes (lung cancer) Cardiac Disorders: Yes ([place]) CVA: No COPD: No CHF: No Dementia: No Diabetes: No GI Disorders: No Disorders: No HTN: Yes Hypercholesterolemia: Yes Liver Disease: No Seizures: No Thyroid Disease: Yes (hyperthyroid) - Surgical History Abdominal Surgery: Yes Appendectomy: Yes Cardiac Surgery: No Cholecystectomy: No Lung Surgery: Yes (RIGHT UPPER LOBECTOMY, bx,thoracotomy) Neurologic Surgery: No Orthopedic Surgery: No - Immunization History Immunization Up to Date: Yes - Psycho/Social/Smoking Cessation Hx Anxiety: Yes Suicidal Ideation: No Smoking Status: Yes Smoking History: Current every day smoker Number of Cigarettes Smoked Daily: 0 If you are a former smoker, when did you quit?: 2010 Information on smoking cessation initiated: No Hx Alcohol Use: No Drug/Substance Use Hx: No Substance Use Type: None Hx Substance Use Treatment: No Patient Lives Alone: No Review of Systems - Review of Systems Able to Perform ROS?: Yes Is the patient limited Mongolian proficient: No Constitutional: No: Symptoms Reported HEENTM: No: Symptoms Reported Respiratory: No: Symptoms reported Cardiac (ROS): No: Symptoms Reported ABD/GI: Yes: Abdominal cramping : Yes: Flank Pain. No: Burning, Dysuria, Discharge, Frequency Musculoskeletal: No: Symptoms Reported Integumentary: No: Symptoms Reported Neurological: No: Symptoms reported Hematologic/Lymphatic: No: Symptoms Reported *Physical Exam - Vital Signs Last Vital Signs Temp Pulse Resp BP Pulse Ox 98.3 F 93 H 18 136/69 99 04/08/17 11:08 04/08/17 11:08 04/08/17 11:08 04/08/17 11:08 04/08/17 11:08 - Physical Exam General Appearance: Yes: Nourished, Appropriately Dressed. No: Apparent Distress HEENT: negative: Pale Conjunctivae Neck: positive: Supple Respiratory/Chest: positive: Lungs Clear, Normal Breath Sounds. negative: Respiratory Distress, Accessory Muscle Use Cardiovascular: positive: Regular Rhythm, Regular Rate. negative: Murmur Gastrointestinal/Abdominal: positive: Normal Bowel Sounds, Soft, Rebound (mild) , Tenderness (left lower quadrant ). negative: Distended, Guarding, Hernia, Mass Musculoskeletal: positive: CVA Tenderness (L) (mild) Extremity: positive: Normal Capillary Refill Integumentary: positive: Normal Color, Warm, Moist Neurologic: positive: Motor Strength 5/5 (ambulatory). negative: Normal Mood/ Affect (anxious) ED Treatment Course - LABORATORY CBC & Chemistry Diagram: 04/08/17 12:02 04/08/17 14:48 - RADIOLOGY Radiology Studies Ordered: Category Date Time Status KIDNEY / RENAL US [US] Stat Ultrasound 04/08/17 12:15 Ordered Medical Decision Making - Medical Decision Making 04/08/17 12:21 Patient complaints of worsening left flank pain now remains her left lower quadrant and has had intermittent nausea since this morning. Patient states took oxycodone this morning along with the Zofran approximately 2 hours ago. Patient on exam had point tenderness to the left lower quadrant left flank region and mild left CVA tenderness. Patient concerning for obstructive uropathy versus UTI versus an inflammatory process. Patient ordered for labs, fluids, analgesics, antiemetics, urine, and kidney ultrasound of the left side. 04/08/17 16:05 Laboratory Tests 04/08/17 04/08/17 04/08/17 11:24 12:02 14:48 WBC 7.5 D Hgb 14.1 Hct 39.9 Plt Count 240 D Neutrophils % 65.4 Sodium 141 Potassium 4.2 Chloride 107 Carbon Dioxide 24 Anion Gap 10 BUN 8 Creatinine 0.8 Creat Clearance w eGFR > 60 Random Glucose 85 Calcium 8.7 Total Bilirubin 0.4 AST 11 L ALT 14 Alkaline Phosphatase 66 Total Protein 7.0 Albumin 3.9 Urine Blood 1+ H Ur Leukocyte Esterase Negative Urine WBC <1 Ultrasound shows no evidence of hydronephrosis or mass. There is dilatation of the left proximal ureter and left ureteral stone that cannot be excluded. Patient will be discharged home with Flomax told to continue Percocet and given a referral to urologist. *DC/Admit/Observation/Transfer Diagnosis at time of Disposition: Kidney stone on left side - Discharge Dispostion Disposition: HOME Condition at time of disposition: Good - Referrals Referrals: Garfield Pisano MD [Primary Care Provider] - Franko Stringer MD., [Staff Physician] - - Patient Instructions Printed Discharge Instructions: DI for Kidney Stones Additional Instructions: Please take Flomax as prescribed and your oxycodone as needed for discomfort. I need you to drink at least 2 L of water on it daily basis until you follow up with the urologist.
[2017-04-08 12:33] LABS: URINE APPEARANCE CLEAR; URINE BILIRUBIN NEGATIVE (NEGATIVE); URINE COLOR COLORLESS; URINE GLUCOSE (UA) NEGATIVE (NEGATIVE); URINE KETONE NEGATIVE (NEGATIVE); URINE LEUK ESTERASE NEGATIVE (NEGATIVE); URINE NITRITE NEGATIVE (NEGATIVE); URINE PROTEIN NEGATIVE (NEGATIVE); URINE UROBILINOGEN NEGATIVE E.U./dl (0.2-1.0)
[2017-04-08 12:42] LABS: URINE BLOOD 1+ (NEGATIVE)
[2017-04-08] MEDS ORDERED: ONDANSETRON 4 MG/2 ML VIAL ONE (12:50)
[2017-04-08 13:04] LABS: EOSINOPHIL 1.2 % (0-4.5); MCH 32.6 pg (25.7-33.7); MCHC 35.3 g/dl (32.0-36.0); MEAN CELL VOLUME 92.5 fl (80-96); MEAN PLT VOLUME 7.5 fl (7.5-11.1); NEUTROPHILS 65.4 % (42.8-82.8); PLATELET COUNT 240 K/MM3 (134-434); RDW 13.9 % (11.6-15.6); WHITE BLOOD COUNT 7.5 K/mm3 (4.0-10.0)
[2017-04-08] MEDS ORDERED: morphine CARPU-JECT 4 MG/1 ML DISP.SYRIN ONE (13:33)
[2017-04-08 14:17] LABS: URINE RBC 1 /hpf (0-3); URINE WBC <1 /hpf (3-5)
[2017-04-08 15:10] LABS: ALBUMIN 3.9 g/dl (3.4-5.0); ANION GAP 10 (8-16); CALCIUM 8.7 mg/dL (8.5-10.1); CO2 24 mmol/L (21-32); CREATININE 0.8 mg/dL (0.55-1.02); GLUCOSE,RANDOM 85 mg/dL (74-106); SGOT/AST 11 U/L (15-37); SGPT/ALT 14 U/L (12-78)
[2017-04-08 15:12] LABS: ALK PHOS 66 U/L (45-117); BILIRUBIN,TOTAL 0.4 mg/dL (0.2-1.0)
[2017-04-08 16:46] VITALS: BP 133/66; PULSE 80
== END 2017-04-08 16:46 | disposition home or self-care (01) ==
LOC: JER 10:54 → JERFT 10:54 → JER 16:46
PROC: 3E033NZ Introduction of Analgesics, Hypnotics, Sedatives into Peripheral Vein, Percutaneous Approach (ICD-10-PCS; principal; 2017-04-08)
PROC: 3E033GC Introduction of Other Therapeutic Substance into Peripheral Vein, Percutaneous Approach (ICD-10-PCS; 2017-04-08)
PROC: 3E0337Z Introduction of Electrolytic and Water Balance Substance into Peripheral Vein, Percutaneous Approach (ICD-10-PCS; 2017-04-08)
DX: N20.0 Calculus of kidney (principal); I25.2 Old myocardial infarction; I10 Essential (primary) hypertension; E05.90 Thyrotoxicosis, unspecified without thyrotoxic crisis or storm; C34.90 Malignant neoplasm of unspecified part of unspecified bronchus or lung; Z87.891 Personal history of nicotine dependence
CPT/HCPCS: 36415; 76775-TC; 80053; 81003; 81015; 85025; 87086; 99284-25

== ENCOUNTER 2017-06-17 12:05 | Emergency (ER) | payer BC ==
[2017-06-17 12:21] VITALS: BMI 20.7
[2017-06-17] MEDS ORDERED: SODIUM CHLORIDE 0.9% 1000 ML INFUS.BAG IV PRN (13:10)
[2017-06-17] MEDS ORDERED: morphine CARPU-JECT 4 MG/1 ML DISP.SYRIN IVPUSH ONE ×2 (13:12→14:31)
[2017-06-17] MEDS ORDERED: ONDANSETRON 4 MG/2 ML VIAL IVPUSH ONE ×2 (13:12→17:14)
--- NOTE | 2017-06-17 13:40 | PDOC ---
Attending Attestation - Resident Resident Name: Edgar Zapata - ED Attending Attestation I have performed the following: I have examined & evaluated the patient, The case was reviewed & discussed with the resident, I agree w/resident's findings & plan, Exceptions are as noted - HPI HPI: 06/17/17 13:38 This is a 61 yo F with a history of cancer , on chemotherapy Pt presents to the ER with a complaint of severe left lower quadrant abdominal pain no fevers or chills No vomiting Pt is having very small bowel movements - Physicial Exam PE: 06/17/17 13:39 Pt is tearful, screaming intermittently in pain RRR CTA Abd ttp - Medical Decision Making 06/17/17 13:39 A/P This is a 61 yo F who has a history of cancer, on chemo, crying due to abdominal pain will do: Labs CXR CT abdomen and pelvis Analgesia Re assess 06/17/17 14:46 Laboratory Tests 06/17/17 06/17/17 13:46 13:46 WBC 5.8 Hgb 14.2 Hct 41.3 Plt Count 211 INR 1.04 PT signed out to Dr Aguilar Awaiting cmp and CT
[2017-06-17] MEDS ORDERED: morphine CARPU-JECT 2 MG/1 ML DISP.SYRIN ONE ×2 (13:47→14:36)
[2017-06-17 14:09] LABS: EOSINOPHIL 1.9 % (0-4.5); MCH 32.9 pg (25.7-33.7); MCHC 34.4 g/dl (32.0-36.0); MEAN CELL VOLUME 95.4 fl (80-96); MEAN PLT VOLUME 7.9 fl (7.5-11.1); NEUTROPHILS 62.6 % (42.8-82.8); PLATELET COUNT 211 K/MM3 (134-434); RDW 15.4 % (11.6-15.6); WHITE BLOOD COUNT 5.8 K/mm3 (4.0-10.0)
[2017-06-17 14:22] LABS: INR 1.04 (0.82-1.09); PROTHROMBIN TIME (PATIENT) 11.4 SEC (9.98-11.88)
[2017-06-17 14:24] LABS: ACTIVATED PTT 31.6 SECONDS (26.9-34.4)
[2017-06-17 14:29] LABS: VENOUS BLOOD GAS HCO3 26.4 meq/L (19-25); VENOUS PH 7.37 (7.32-7.42)
[2017-06-17 14:40] LABS: URINE APPEARANCE CLEAR; URINE BILIRUBIN NEGATIVE (NEGATIVE); URINE BLOOD 2+ (NEGATIVE); URINE COLOR STRAW; URINE GLUCOSE (UA) NEGATIVE (NEGATIVE); URINE KETONE NEGATIVE (NEGATIVE); URINE LEUK ESTERASE TRACE (NEGATIVE); URINE NITRITE NEGATIVE (NEGATIVE); URINE PROTEIN NEGATIVE (NEGATIVE); URINE UROBILINOGEN NEGATIVE mg/dL (0.2-1.0)
[2017-06-17 14:45] LABS: URINE RBC 1 /hpf (0-3); URINE WBC 2 /hpf (3-5)
--- NOTE | 2017-06-17 15:06 | PDOC ---
History of Present Illness - General Chief Complaint: Pain, Acute Stated Complaint: ALLERGIC REACTION Time Seen by Provider: 06/17/17 13:04 History Source: Patient Exam Limitations: No Limitations - History of Present Illness Initial Comments: 06/17/17 14:57 Patient is a 61F with history of lung cancer (on chemotherapy), lymphoma, and prior DC here today complaining of LLQ pain for the past 10 months, worsening over the past few weeks. She endorses associated nausea and constipation with her symptoms. She describes the pain as sharp, and does not radiate anywhere. She endorses subjective fevers, chills and nausea. She denies chest pain, shortness of breath and vomiting. She rates the pain 10/10. Past History - Past Medical History Allergies/Adverse Reactions: Allergies Allergy/AdvReac Type Severity Reaction Status Date / Time hydromorphone HCl AdvReac Mild nausea/vomi Verified 06/17/17 12:20 [From Dilaudid] ting Home Medications: Ambulatory Orders Alprazolam 0.5 mg PO TID 06/17/17 Aspirin [ASA -] 81 mg PO DAILY 06/17/17 Capecitabine [Xeloda -] 1,000 mg PO BID 06/17/17 Methimazole 2.5 mg PO ASDIR 06/17/17 Methimazole 5 mg PO ASDIR 06/17/17 Ondansetron [Zofran -] 8 mg PO TID 06/17/17 Oxycodone HCl 10 mg PO Q4H 06/17/17 Propranolol HCl [Inderal] 20 mg PO Q8H 06/17/17 Zolpidem Tartrate [Ambien] 10 mg PO HS 06/17/17 Anemia: No Asthma: No Cancer: Yes (lung cancer; lymphoma.) Cardiac Disorders: Yes ([place]) CVA: No COPD: No CHF: No Dementia: No Diabetes: No GI Disorders: No Disorders: No HTN: Yes Hypercholesterolemia: Yes Liver Disease: No Seizures: No Thyroid Disease: Yes (hyperthyroid) - Surgical History Abdominal Surgery: Yes Appendectomy: Yes Cardiac Surgery: No Cholecystectomy: No Lung Surgery: Yes (RIGHT UPPER LOBECTOMY, bx,thoracotomy) Neurologic Surgery: No Orthopedic Surgery: No - Immunization History Immunization Up to Date: Yes - Psycho/Social/Smoking Cessation Hx Anxiety: Yes Suicidal Ideation: No Smoking Status: Yes Smoking History: Former smoker Have you smoked in the past 12 months: No Number of Cigarettes Smoked Daily: 0 If you are a former smoker, when did you quit?: 2010 Information on smoking cessation initiated: No Hx Alcohol Use: No Drug/Substance Use Hx: No Substance Use Type: None Hx Substance Use Treatment: No Review of Systems - Review of Systems Comments:: 06/17/17 15:07 GENERAL/CONSTITUTIONAL: Positive for fevers and chills. HEAD, EYES, EARS, NOSE AND THROAT: No change in vision. No ear pain or discharge. No sore throat. CARDIOVASCULAR: Positive for chest pain and shortness of breath RESPIRATORY: Positive for cough. Negative for hemoptysis GASTROINTESTINAL: Positive for nausea, diarrhea, and constipation. Negative for vomiting. GENITOURINARY: No dysuria, frequency, or change in urination. SKIN: No rash NEUROLOGIC: Positive for headache. Negative for loss of consciousness, or change in strength/sensation. ALLERGIC/IMMUNOLOGIC: No hives or skin allergy. *Physical Exam - Vital Signs Last Vital Signs Temp Pulse Resp BP Pulse Ox 92 H 24 154/97 100 06/17/17 12:15 06/17/17 12:15 06/17/17 12:15 06/17/17 12:15 - Physical Exam Comments: 06/17/17 15:10 GENERAL: Awake, alert, and fully oriented, in acute distress HEAD: No signs of trauma, normocephalic, atraumatic EYES: PERRLA, EOMI, sclera anicteric, conjunctiva clear ENT: Auricles normal inspection, hearing grossly normal, nares patent, oropharynx clear without exudates. Moist mucosa LUNGS: No distress, speaks full sentences, clear to auscultation bilaterally HEART: Regular rate and rhythm, normal S1 and S2, no murmurs, rubs or gallops, peripheral pulses normal and equal bilaterally. ABDOMEN: Tender in LLQ. No guarding, no rebound. No masses EXTREMITIES: Normal inspection, Normal range of motion, no edema. No clubbing or cyanosis. NEUROLOGICAL: Cranial nerves II through XII grossly intact. Normal speech, no focal sensorimotor deficits SKIN: Warm, Dry, normal turgor, no rashes or lesions noted. ED Treatment Course - LABORATORY CBC & Chemistry Diagram: 06/17/17 13:46 06/17/17 15:30 - ADDITIONAL ORDERS Additional order review: Laboratory Results 06/17/17 06/17/17 06/17/17 14:19 13:58 13:46 INR PTT (Actin FS) VBG pH POC VBG pCO2 POC VBG pO2 Mixed VBG HCO3 Sodium Potassium Chloride Carbon Dioxide Anion Gap BUN Creatinine Creat Clearance w eGFR Random Glucose Lactic Acid Cancelled Calcium Total Bilirubin AST ALT Alkaline Phosphatase Creatine Kinase Troponin I Total Protein Albumin Urine Color Straw Urine Appearance Clear Urine pH 6.0 Urine Protein Negative Urine Glucose (UA) Negative Urine Ketones Negative Urine Blood 2+ H Urine Nitrite Negative Urine Bilirubin Negative Urine Urobilinogen Negative Ur Leukocyte Esterase Trace Urine RBC 1 Urine WBC 2 Ur Epithelial Cells Rare Blood Type Cancelled Antibody Screen Cancelled Spec Expiration Date Cancelled 06/17/17 06/17/17 06/17/17 13:46 13:46 13:18 INR 1.04 PTT (Actin FS) 31.6 VBG pH 7.37 POC VBG pCO2 46.6 POC VBG pO2 53.9 H Mixed VBG HCO3 26.4 H Sodium Cancelled Potassium Cancelled Chloride Cancelled Carbon Dioxide Cancelled Anion Gap Cancelled BUN Cancelled Creatinine Cancelled Creat Clearance w eGFR Cancelled Random Glucose Cancelled Lactic Acid Calcium Cancelled Total Bilirubin Cancelled AST Cancelled ALT Cancelled Alkaline Phosphatase Cancelled Creatine Kinase Cancelled Troponin I Cancelled Total Protein Cancelled Albumin Cancelled Urine Color Urine Appearance Urine pH Urine Protein Urine Glucose (UA) Urine Ketones Urine Blood Urine Nitrite Urine Bilirubin Urine Urobilinogen Ur Leukocyte Esterase Urine RBC Urine WBC Ur Epithelial Cells Blood Type Antibody Screen Spec Expiration Date 06/17/17 13:46 RBC 4.33 MCV 95.4 MCHC 34.4 RDW 15.4 D MPV 7.9 Neutrophils % 62.6 Lymphocytes % 28.4 Monocytes % 6.1 Eosinophils % 1.9 Basophils % 1.0 - RADIOLOGY Radiology Studies Ordered: Category Date Time Status ABDOMEN & PELVIS CT WITH CONTR [CT] Stat CT Scan 06/17/17 14:54 Ordered CHEST X-RAY PORTABLE* [RAD] Stat Radiology 06/17/17 13:10 Completed - Medications Given in the ED: ED Medications Discontinued Medications Generic Name Dose Route Start Last Admin Trade Name Freq PRN Reason Stop Dose Admin Morphine Sulfate 4 mg 06/17/17 13:12 06/17/17 13:54 Morphine Injection - IVPUSH 06/17/17 13:13 4 mg ONCE ONE Administration Morphine Sulfate 4 mg 06/17/17 14:31 06/17/17 14:43 Morphine Injection - IVPUSH 06/17/17 14:32 4 mg ONCE ONE Administration Ondansetron HCl 4 mg 06/17/17 13:12 06/17/17 13:54 Zofran Injection IVPUSH 06/17/17 13:13 4 mg ONCE ONE Administration Medical Decision Making - Medical Decision Making 06/17/17 15:11 61F with lung cancer (on chemotherapy), prior DC and HTN here today with LLQ abdominal pain. Tachycardic, tachypneic. Pain not controlled with initial 4mg morphine. Under control with additional 4mg morphine. Differential diagnosis includes, but is not limited to: Diverticulitis, bowel obstruction and mesenteric adenitis. Will evaluate with CBC, CMP, Lactate, Blood cultures, EKG, trop, ua and abdominal ct. 06/17/17 15:27 Normal and right sided EKG show normal rate, normal axis and no st-elevations. 06/17/17 15:31 CXR shows a port, no acute cardiopulmonary process 06/17/17 20:30 CBC, CMP, Trop, UA unremarkable. Abdominal CT shows no diverticulitis or acute intra-abdominal pathology. Patient requesting food and given PO challenge. Call out to Dr Key, her oncologist, before discharge. 06/17/17 21:25 Dr Serna, covering for Dr Gr, contacted and discussed patient. Agrees with plan to discharge. Instructed patient to hold oral chemotherapy. Patient instructed to set up appointment tomorrow with her practice. *DC/Admit/Observation/Transfer Diagnosis at time of Disposition: Abdominal pain - Discharge Dispostion Disposition: HOME Condition at time of disposition: Good Admit: No - Referrals Referrals: Garfield Pisano MD [Primary Care Provider] - - Patient Instructions Printed Discharge Instructions: DI for Abdominal Pain-Adult
--- NOTE | 2017-06-17 16:16 | EKG ---
Test Reason : Blood Pressure : / mmHG Vent. Rate : 076 BPM Atrial Rate : 076 BPM P-R Int : 178 ms QRS Dur : 070 ms QT Int : 398 ms P-R-T Axes : 087 017 073 degrees QTc Int : 447 ms SINUS RHYTHM WITH PREMATURE ATRIAL COMPLEXES WITH ABERRANT CONDUCTION POSSIBLE LEFT ATRIAL ENLARGEMENT LOW VOLTAGE QRS CANNOT RULE OUT ANTEROSEPTAL INFARCT (CITED ON OR BEFORE 16-MAR-2008) ABNORMAL ECG WHEN COMPARED WITH ECG OF 17-JUN-2017 14:27, SIGNIFICANT CHANGES HAVE OCCURRED Confirmed by RAÚL CLINTON MD ([id number]) on 06/17/2017 4:15:49 PM Referred By: Confirmed By:RAÚL CLINTON MD
--- NOTE | 2017-06-17 16:18 | EKG ---
Test Reason : Blood Pressure : / mmHG Vent. Rate : 137 BPM Atrial Rate : 178 BPM P-R Int : 000 ms QRS Dur : 054 ms QT Int : 122 ms P-R-T Axes : 079 070 138 degrees QTc Int : 184 ms NORMAL SINUS RHYTHM INCOMPLETE RIGHT BUNDLE BRANCH BLOCK Confirmed by RAÚL CLINTON MD ([id number]) on 06/17/2017 4:18:04 PM Referred By: Confirmed By:RAÚL CLINTON MD
[2017-06-17 16:31] LABS: ANION GAP 8 (8-16); BILIRUBIN,TOTAL 0.5 mg/dL (0.2-1.0); CALCIUM 9.4 mg/dL (8.5-10.1); CO2 27 mmol/L (21-32); CREATININE 0.8 mg/dL (0.55-1.02); GLUCOSE,RANDOM 90 mg/dL (74-106); SGOT/AST 10 U/L (15-37); SGPT/ALT 17 U/L (12-78); TOT PROT 7.3 g/dl (6.4-8.2)
[2017-06-17] MEDS ORDERED: ONDANSETRON 4 MG/2 ML VIAL ONE (16:32)
[2017-06-17 16:33] LABS: ALK PHOS 86 U/L (45-117); CPK 47 IU/L (26-192); TROPONIN I < 0.02 ng/ml (0.00-0.05)
[2017-06-17 21:38] VITALS: BP 110/64; PULSE 80; TEMP 97.5
== END 2017-06-17 21:38 | disposition home or self-care (01) ==
LOC: JER 12:05
PROC: 3E033NZ Introduction of Analgesics, Hypnotics, Sedatives into Peripheral Vein, Percutaneous Approach (ICD-10-PCS; principal; 2017-06-17)
PROC: 3E033GC Introduction of Other Therapeutic Substance into Peripheral Vein, Percutaneous Approach (ICD-10-PCS; 2017-06-17)
DX: R10.9 Unspecified abdominal pain (principal); Z85.118 Personal history of other malignant neoplasm of bronchus and lung; Z92.21 Personal history of antineoplastic chemotherapy
CPT/HCPCS: 36415; 71010-TC; 74177-TC; 80053; 81003; 81015; 82803; 83605; 84484; 85025; 85610; 85730; 87040; 87086; 93005; 93010; 99285-25

== ENCOUNTER 2017-10-04 12:36 | Emergency (ER) | payer BC ==
[2017-10-04 12:41] VITALS: TEMP 98.4; BMI 20.7
--- NOTE | 2017-10-04 13:51 | PDOC ---
History of Present Illness - General Chief Complaint: Shortness of Breath Stated Complaint: SOB Time Seen by Provider: 10/04/17 13:50 - History of Present Illness Initial Comments: 10/04/17 14:21 61yo woman with PMH of Lung Ca s/p RUL lobectomy (2010) and LLL lobectomy (2016) , hyperthyroidism 2/2 Nivolumab who presents with 2 days of worsening sob. She reports mild cold symptoms last week with +rhinorrhea and sinus pressure. For the past 2 days however, she gets sob with minimal activity, including brushing her hair and walking the bathroom. Reports her father and grandchild recently "had a cold". Denies any fever, chills, pleuritic chest pain, n/v. PCP: Dr. Lubin Oncologist: Dr. Key Past History - Past Medical History Allergies/Adverse Reactions: Allergies Allergy/AdvReac Type Severity Reaction Status Date / Time hydromorphone HCl AdvReac Mild nausea/vomi Verified 10/04/17 12:37 [From Dilaudid] ting Home Medications: Ambulatory Orders Alprazolam 0.5 mg PO TID 06/17/17 Aspirin [ASA -] 81 mg PO DAILY 06/17/17 Methimazole 2.5 mg PO ASDIR 06/17/17 Methimazole 5 mg PO ASDIR 06/17/17 Oxycodone HCl 15 mg PO Q4H 06/17/17 Propranolol HCl [Inderal] 20 mg PO Q8H 06/17/17 Albuterol Sulfate Inhaler - [Ventolin HFA Inhaler -] 1 - 2 inh PO Q4H #1 inhaler 10/04/17 Pregabalin [Lyrica] 150 mg PO TID 10/04/17 Anemia: No Asthma: No Cancer: Yes (lung cancer; lymphoma.) Cardiac Disorders: Yes ([place]) CVA: No COPD: No CHF: No DVT: No Dementia: No Diabetes: No GI Disorders: No Disorders: No HTN: Yes Hypercholesterolemia: Yes Liver Disease: No Seizures: No Thyroid Disease: Yes (hyperthyroid) - Surgical History Abdominal Surgery: Yes Appendectomy: Yes Cardiac Surgery: No Cholecystectomy: No Lung Surgery: Yes (RIGHT UPPER LOBECTOMY, bx,thoracotomy) Neurologic Surgery: No Orthopedic Surgery: No - Immunization History Immunization Up to Date: Yes - Suicide/Smoking/Psychosocial Hx Smoking Status: Yes Smoking History: Former smoker Have you smoked in the past 12 months: No Number of Cigarettes Smoked Daily: 0 If you are a former smoker, when did you quit?: 2010 Information on smoking cessation initiated: No Hx Alcohol Use: No Drug/Substance Use Hx: No Substance Use Type: Opiates Hx Substance Use Treatment: No *Physical Exam - Vital Signs Last Vital Signs Temp Pulse Resp BP Pulse Ox 98.4 F 111 H 25 H 114/74 96 10/04/17 12:38 10/04/17 12:38 10/04/17 12:38 10/04/17 12:38 10/04/17 12:38 - Physical Exam General Appearance: Yes: Nourished, Appropriately Dressed HEENT: positive: Normal ENT Inspection Neck: positive: Supple. negative: Lymphadenopathy (R), Lymphadenopathy (L) Respiratory/Chest: positive: Wheezing (bibasilar wheezing) Cardiovascular: positive: Regular Rhythm, Regular Rate, S1, S2 Vascular Pulses: Dorsalis-Pedis (R): 2+, Doralis-Pedis (L): 2+ Gastrointestinal/Abdominal: positive: Normal Bowel Sounds, Soft. negative: Tender, Distended Neurologic: positive: rim buster II-XII NML intact (grossly intact, but not formally tested), Fully Oriented, Alert ED Treatment Course - LABORATORY CBC & Chemistry Diagram: 10/04/17 15:00 10/04/17 15:00 Medical Decision Making - Medical Decision Making 10/04/17 14:32 61yo woman with significant PMH of Lung ca and 2x lobectomies who presents with acute onset on. Differential includes, but not limited to PNA vs bronchitis vs PE. Patient's physical exam is notable for bibasilar wheezing, which is inconsistent with PE. Will do basic lab work-up including, CXR, CBC, CMP. Will give 125mg Solumedrol and duo nebs, and reassess. *DC/Admit/Observation/Transfer Diagnosis at time of Disposition: Shortness of breath - Prescriptions Prescriptions: Albuterol Sulfate Inhaler - [Ventolin HFA Inhaler -] 1 - 2 inh PO Q4H #1 inhaler - Referrals - Patient Instructions Printed Discharge Instructions: DI for Shortness of Breath Additional Instructions: Please make an appointment to see your primary care physician, Dr. Norris, within the next 2-3 days. You can continue taking your regular home medications as directed by your physicians. Take 1-2 puffs of the Albuterol every 4 hours as needed for your shortness of breath. Please return to the Emergency Department if you have worsening shortness of breath, dizziness, or new or concerning symptoms. - Post Discharge Activity
[2017-10-04] MEDS ORDERED: methylPREDNISolone NA SUCC 125 MG/2 ML VIAL IVPUSH ONE (14:19)
[2017-10-04] MEDS ORDERED: ALBUTEROL SO4 2.5/IPRATROPIUM 0.5 INH SOL 3 ML VIAL.NEB. NEB ONE ×2 (14:19→14:50)
[2017-10-04] MEDS ORDERED: methylPREDNISolone NA SUCC 125 MG/2 ML VIAL ONE (14:50)
[2017-10-04 15:13] LABS: BASOPHIL 1.1 % (0-2.0); EOSINOPHIL 2.1 % (0-4.5); MCH 32.1 pg (25.7-33.7); MCHC 34.4 g/dl (32.0-36.0); MEAN CELL VOLUME 93.4 fl (80-96); MEAN PLT VOLUME 7.6 fl (7.5-11.1); PLATELET COUNT 243 K/MM3 (134-434); RDW 13.8 % (11.6-15.6); WHITE BLOOD COUNT 6.2 K/mm3 (4.0-10.0)
[2017-10-04 15:30] LABS: ALBUMIN 3.1 g/dl (3.4-5.0); ANION GAP 6 (8-16); BILIRUBIN,TOTAL 0.2 mg/dL (0.2-1.0); CALCIUM 8.4 mg/dL (8.5-10.1); CO2 29 mmol/L (21-32); CREATININE 0.7 mg/dL (0.55-1.02); GLUCOSE,RANDOM 86 mg/dL (74-106); SGOT/AST 10 U/L (15-37); SGPT/ALT 19 U/L (12-78); TOT PROT 6.7 g/dl (6.4-8.2)
[2017-10-04 15:31] LABS: ALK PHOS 101 U/L (45-117)
[2017-10-04 18:25] VITALS: BP 119/64; PULSE 95
== END 2017-10-04 18:10 | disposition home or self-care (01) ==
LOC: JER 12:36
PROC: 3E0F7GC Introduction of Other Therapeutic Substance into Respiratory Tract, Via Natural or Artificial Opening (ICD-10-PCS; principal; 2017-10-04)
DX: R06.02 Shortness of breath (principal); Z85.118 Personal history of other malignant neoplasm of bronchus and lung; I10 Essential (primary) hypertension; E78.00 Pure hypercholesterolemia, unspecified; E07.9 Disorder of thyroid, unspecified
CPT/HCPCS: 36415; 71020-TC; 80053; 85025; 99285-25